=== PATIENT | male | born 1960 | race Asian ===

== ENCOUNTER 2016-12-30 11:23 | Day surgery (SDC) | payer OTHER ==
[~2016-12-30] VITALS: Ht 170.2 cm; Wt 70.0 kg
[~2016-12-30 11:23] MED LIST: AMLO5TAB4 PO; ATOR20TA38 PO; BECL8.7A5 INH; BENA20TA48 PO; CEFAZOLIN 1 GM INJ ONE; CEFAZOLIN 2 GM/50 ML (PMX) 50 ML IVPB SCH; LIDOCAINE 1% (MDV) 20 ML INJ ONE; ROPIVACAINE 0.2% 20 ML VIAL ONE; SOD CHLORIDE 0.9% 1,000 ML IV SCH; TAMS0.4C2 PO
[2016-12-30] MEDS ORDERED: AMLO-147 PO (12:06)
[2016-12-30 12:13] VITALS: Ht 170.2 cm; Wt 70.0 kg
[2016-12-30 12:22] VITALS: BP 128/79; PULSE 76; RESP 18
[2016-12-30] MEDS ORDERED: BUPIVACAINE 0.25% (MPF) 30 ML INJ ONE (13:03)
[2016-12-30] MEDS ORDERED: PROPOFOL 20 ML ONE (13:08)
[2016-12-30] MEDS ORDERED: ROPIVACAINE 0.2% 20 ML VIAL ONE (13:08)
[2016-12-30] MEDS ORDERED: MIDAZOLAM 1 MG/ML 2 ML INJ ONE (13:08)
[2016-12-30] MEDS ORDERED: ONDANSETRON 4 MG INJ ONE (13:34)
[2016-12-30] MEDS ORDERED: FAMOTIDINE 20 MG INJ ONE (13:35)
[2016-12-30] MEDS ORDERED: DEXAMETHASONE 4 MG/ML 1 ML INJ ONE (13:35)
[2016-12-30] MEDS ORDERED: KETOROLAC 30 MG INJ ONE (13:40)
[2016-12-30 14:25] VITALS: BP 110/70; PULSE 78; RESP 21
[2016-12-30 14:26] VITALS: BP 109/64; PULSE 74; RESP 20
--- NOTE | 2016-12-30 14:29 | OPR ---
Date/Time of Note Date/Time of Note DATE: 12/30/16 TIME: 14:24 Operative Report Procedure Date: Dec 30, 2016 Preoperative Diagnosis left inguinal hernia Postoperative Diagnosis same Operation/Procedure Performed 1. open left inguinal hernia repair with mesh ultrapro medium 2. therapeutic injection subcutaneous local anesthesia Surgeon see signature line Dairy Laboratory Technician none Anesthesia Type: general Estimated Blood Loss: 0 - 10 ml's Transfusion none Specimen cord lipoma hernia sac Grafts/Implants none Complications none Pt Condition Post Procedure: stable Indications This is a 56-year-old male with a large left inguinal hernia. He requests surgical repair. Risks alternatives benefits of personally discussed the patient. Patient expresses understanding consents to the operation. Procedure Description Patient taken to the OR prepped and draped in usual sterile fashion. Surgical timeout was performed. IV antibiotics were given. Left inguinal oblique incision is made with a 10 blade. Dissection cautery was carried onto the extremity fascia. This extremity fascia is opened with a 15 blade. This incision is extended medially inferiorly lateral superiorly with Metzenbaum scissors. Cord structures were identified and encircled with a Windsor drain. Indirect large hernia is identified and reduced. A cord lipoma was excised with cautery. The base of the hernia sac was twisted at the base after identifying that there is no contents inside. This twisted area was grasped with hemostat and suture ligature was applied with 0 Vicryl suture. This was secured to the distal portion of the ultrapure hernia system mesh and used to bolster the hernia defect. A running 0 Prolene from the pubic tubercle along the shelving edge of the inguinal limit was used to secure the distal portion of the ultrapure hernia system mesh. The disc was secured superiorly to enter oblique with interrupted 3-0 Vicryl. Onlay mesh is secured in similar fashion with a running 0 Prolene from the pubic tubercle along the shelving of the inguinal ligament. Strep screen reapproximated on the cord structures to re- create the inguinal ring with interrupted 0 Prolene. Onlay mesh is secured centrally with interrupted 3-0 Vicryl. Extremity fascia is closed with running 3-0 Vicryl. Kristin's fascia is closed with 0 Vicryl. Skin is closed using skin gayle. There appears to contains local anesthesia is injected throughout the incision. Dressings were applied. Andrey FELIZ Dec 30, 2016 14:29
[2016-12-30] MEDS ORDERED: HYDROCODONE/APAP (5/325) TAB PO ONE (14:30)
[2016-12-30] MEDS ORDERED: POLYMYXIN/BACITRACIN 1L IRRIG IRR SCH (14:30)
[2016-12-30] MEDS ORDERED: FENTAnyl 50 MCG/ML VIAL IV PRN ×2 (14:30)
[2016-12-30] MEDS ORDERED: HYDROmorphONE (0.2 MG/ML) 10ML SYG IV PRN ×2 (14:30)
[2016-12-30 14:31] VITALS: BP 113/74; PULSE 76; RESP 16
[2016-12-30 16:10] VITALS: BP 118/69; PULSE 59; RESP 18
== END 2016-12-30 16:19 | disposition home or self-care (01) ==
LOC: SDS 11:23
PROVIDERS: ATTEND Surgery
DX: K40.90 Unilateral inguinal hernia, without obstruction or gangrene, not specified as recurrent (principal); Z87.891 Personal history of nicotine dependence
CPT/HCPCS: 88302; C1781; J0690; J1100; J1885; J2250; J2405; J2795; J3010